=== PATIENT | female | born 1965 | race African-American/Black ===

== ENCOUNTER 2017-11-02 13:37 | Emergency (ER) | payer MEDICAID, OTHER | END 2017-11-02 14:20 | disposition home or self-care (01) | LOC: MADERS 13:37 | DX: K04.7 Periapical abscess without sinus (principal); E11.9 Type 2 diabetes mellitus without complications; I10 Essential (primary) hypertension; Z79.899 Other long term (current) drug therapy | CPT/HCPCS: 99282 ==

== ENCOUNTER 2023-05-14 17:29 | Emergency (ER) | payer OTHER, SELFPAY | END 2023-05-14 19:07 | disposition home or self-care (01) | LOC: MADERS 17:29 | DX: R05.9 Cough, unspecified (principal); R09.81 Nasal congestion; E11.9 Type 2 diabetes mellitus without complications; E78.00 Pure hypercholesterolemia, unspecified; Z79.84 Long term (current) use of oral hypoglycemic drugs; Z79.899 Other long term (current) drug therapy | CPT/HCPCS: 87804; 99283 ==